=== PATIENT | female | born 1965 | race Caucasian/White ===

== ENCOUNTER → 2023-02-25 | Day surgery (SDC) | payer OTHER ==
[~2023-02-25] MED LIST: ACETAMINOPHEN 1000 MG/100 ML 100 ML IV ONE; ACETAMINOPHEN/CODEINE 300MG - 30MG TAB ONE; ACETAMINOPHEN/CODEINE 300MG - 30MG TAB PO ONE; CEFTRIAXONE100 GM PO; COMBIVENT RESPIM4 GM NS; DEXAMETHASONE SOD PHOS 10 MG/1 ML VIAL ONE; DYRENIUM50 MG PO; FENTANYL CITRATE/PF 100MCG/2 ML INJ ONE; KETOROLAC TROMETHAMINE 30 MG/ML VIAL ONE; LACTATED RINGER'S 1,000 ML ONE; LIDOCAINE HCL 2% LOCAL INJ 5 ML SDV VIAL INJ ONE; OFLOXACIN 0.3% (OTIC SOL) 5 ML BTL ONE; ONDANSETRON HCL INJ 2MG/ML 2ML 2 MG/ML VIAL ONE; POVIDONE IODINE 0.05% 0.05 % ML PO ONE; PROPOFOL IV EMULSION 10 MG/ML 20 ML VIAL ONE; SEVOFLURANE INHAL SOLN 250 ML PEN BTL ONE; TRIAMTERENE-HC1 EAC1 PO
[2023-02-25] MEDS: FENTANYL CITRATE/PF 100MCG/2 ML INJ ONE ×2 (08:25→08:32)
[2023-02-25 08:55] VITALS: BP 111/75
== END | disposition home or self-care (01) ==
LOC: OR 05:44
PROVIDERS: ATTEND Otolaryngology Otolaryngology/Facial Plastic Surgery
DX: H69.83 Other specified disorders of Eustachian tube, bilateral (principal); H81.03 Meniere's disease, bilateral; H93.12 Tinnitus, left ear; H90.3 Sensorineural hearing loss, bilateral; Z79.899 Other long term (current) drug therapy
CPT/HCPCS: 69436; 93005; J0131; J1100; J1885; J2001; J2405; J2704; J3010; J7121